=== PATIENT | male | born 1995 | race Two or more races ===

== ENCOUNTER 2022-03-29 20:53 | Emergency (ER) | payer OTHER ==
[~2022-03-29] VITALS: Ht 190.5 cm; Wt 104.3 kg
== END 2022-03-29 21:41 | disposition home or self-care (01) ==
LOC: ER 20:53
DX: J02.0 Streptococcal pharyngitis (principal)

== ENCOUNTER → 2022-04-06 | Emergency (ER) | payer OTHER ==
[~2022-04-06] VITALS: Ht 190.5 cm; Wt 105.2 kg
== END | disposition left against medical advice (07) ==
LOC: ER 21:03
DX: J03.80 Acute tonsillitis due to other specified organisms (principal); Z20.822 Contact with and (suspected) exposure to COVID-19

== ENCOUNTER 2022-10-12 18:17 | Emergency (ER) | payer OTHER ==
[~2022-10-12] VITALS: Ht 190.5 cm; Wt 104.3 kg
== END 2022-10-12 20:23 | disposition home or self-care (01) ==
LOC: ER 18:17
DX: J03.80 Acute tonsillitis due to other specified organisms (principal)

== ENCOUNTER 2023-01-02 10:00 | Emergency (ER) | payer OTHER ==
[~2023-01-02] VITALS: Ht 190.5 cm; Wt 104.3 kg
[2023-01-02] MEDS ORDERED: NORFLEX100MG PO (13:35)
[2023-01-02] MEDS ORDERED: KETO10TA2 PO (13:35)
== END 2023-01-02 13:40 | disposition home or self-care (01) ==
LOC: ER 10:00
DX: M54.50 Low back pain, unspecified (principal)

== ENCOUNTER 2023-03-29 23:57 | Emergency (ER) | payer OTHER ==
[~2023-03-29] VITALS: Ht 190.5 cm; Wt 103.9 kg
[~2023-03-29 23:57] MED LIST: KETO10TA2 PO; NORFLEX100MG PO
== END 2023-03-30 02:42 | disposition home or self-care (01) ==
LOC: ER 23:57
DX: M62.830 Muscle spasm of back (principal)